=== PATIENT | female | born 2000 | race Caucasian/White ===

== ENCOUNTER 2024-01-14 16:41 | Emergency (ER) | payer OTHER, MEDICAID, SELFPAY ==
--- NOTE | ~2024-01-14 | XR_ITS ---
EXAMINATION: XR chest 2V DATE: 01/14/2024 17:22 INDICATION: 2 weeks of cough TECHNIQUE: PA and lateral views of the chest were obtained. COMPARISON: None FINDINGS: The lungs are clear with no focal airspace opacities, pulmonary edema, pleural effusion or pneumothor ax. The cardiomediastinal silhouette is normal. Cholecystectomy clips in right upper quadrant. IMPRESSION: 1. No acute cardiopulmonary disease. Reviewed, dictated and finalized at location A.
[2024-01-14 16:51] VITALS: BP 115/71; PULSE 90; RESP 16; TEMP 36.7; O2SAT 100
--- NOTE | 2024-01-14 17:49 | ED.GENADULT ---
HPI - General Adult General Chief complaint: Upper Respiratory Infection Stated complaint: Cough Source: patient Mode of arrival: ambulatory Limitations: no limitations History of Present Illness HPI narrative: Patient presents for evaluation of sick symptoms for last 2 weeks. Symptoms include chills, nonproductive cough, dyspnea on exertion, one episode of vomiting yesterday, and fatigue. Her significant other had similar symptoms. He took a COVID test and flu test, both of which were negative. His symptoms started around the same time but improved significantly about 3-4 days ago. She has been taking Mucinex for symptoms. She does not smoke or vape. Related Data Home Medications Medication Instructions Recorded Confirmed dextroamphetamine-amphetamine ER 5 10 mg PO DAILY 01/14/24 01/14/24 mg 24hr capsule,extend release lamotrigine 200 mg tablet,extended 200 mg PO DAILY 01/14/24 01/14/24 release 24 hr Allergies Allergy/AdvReac Type Severity Reaction Status Date / Time No Known Allergies Allergy Verified 01/14/24 17:21 Review of Systems Review of Systems: CONSTITUTIONAL: Reports chills and fatigue. Denies fever or sweats. EYES: Denies visual changes, redness, or discharge. ENT: Reports sore throat. Denies rhinorrhea, congestion, or otalgia. CARDIOVASCULAR: Denies chest pain, palpitations, or edema. RESPIRATORY: Reports cough and [place]. Denies SOB at rest GASTROINTESTINAL: Reports one episode of vomiting. Denies abdominal pain, nausea, or diarrhea. GENITOURINARY: Denies dysuria or hematuria. SKIN: Denies rash or itching. MUSCULOSKELETAL: Denies back pain, joint pain, or myalgia. NEUROLOGIC: Denies headache, numbness, dizziness, or weakness. PSYCHIATRIC: Denies anxiety or depression. ON LICENSE OF [facility] Past Medical History Medical History ADD (attention deficit disorder) Bipolar disorder Surgical History Surgical History No pertinent past surgical history Family History Family History Mother Family history non-contributory Social History Social History Smoking status: Never smoker Substance use: never Gender identity (if verbalized by the patient): Female Sexual Orientation (if Verbalized by the Patient): Straight or Heterosexual Spiritual care concerns: No Exam Narrative: GENERAL: Well-appearing, well-nourished, and in no acute distress. HEAD: Normocephalic, atraumatic. EYES: PERRLA and EOMI. ENT: Nares clear, no rhinorrhea or epistaxis. Mucous membranes moist. Oropharynx without tonsillar hypertrophy exudate or other lesions. Bilateral TMs pearly meyers nonbulging NECK: Supple. No adenopathy or masses. No carotid bruits or JVD CHEST: Clear to auscultation. No respiratory distress. No wheezes rales or rhonchi HEART: Regular rate and rhythm. No murmur heard. Normal peripheral pulses. ABDOMEN: Soft, nontender, nondistended, normal active bowel sounds. EXTREMITIES: Normal range of motion. No edema. SKIN: Warm, dry, no rash. NEURO: No focal deficits. Alert and oriented x3. PSYCH: Normal mood and affect. Course Course Emergency Course: This is a 23-year-old female who presented for evaluation sick symptoms primarily a cough. Strep, COVID, influenza were all negative. Chest x-ray normal. Exam is consistent with acute viral syndrome. Increase hydration. [id number]-cnempjp agents for symptom management. Follow up with primary provider. Go to the ER for worsening symptoms. Patient in agreement with plan of care. Level of Care: Express Care Visit Vital Signs Vital signs: Vital Signs Temperature 36.7 C 01/14/24 16:51 Pulse Rate 90 01/14/24 16:51 Respiratory Rate 16 01/14/24 16:51 Blood Pressure 115/71 01/14/24 16:51 Pulse Oxim
== END 2024-01-14 18:00 | disposition home or self-care (01) ==
PROVIDERS: Emergency Provider Nurse Practitioner
DX: B34.9 Viral infection, unspecified (principal); F98.8 Other specified behavioral and emotional disorders with onset usually occurring in childhood and adolescence; F31.9 Bipolar disorder, unspecified
CPT/HCPCS: 71046; 87081; 87804; 87880; 99213; G0463